=== PATIENT | female | born 1985 | race Caucasian/White ===

== ENCOUNTER 2022-11-24 14:50 | Emergency (ER) | payer MEDICAID, SELFPAY ==
--- NOTE | ~2022-11-24 | CT_ITS ---
EXAMINATION: CT HEAD WITHOUT CONTRAST CLINICAL INFORMATION: Headache. COMPARISON: None. TECHNIQUE: Contiguous axial imaging was performed from the skull base to vertex without intravenous administration of contrast. This CT examination was performed using dose optimization techniques as appropriate, variously including the following: *Automated exposure control *Adjustment of mA and/or kV according to patient size (this includes techniques or standardized protocols for targeted exams where dose is matched to indication/reason for exam; i.e. extremities or head) *Use of iterative reconstruction technique DLP: 608 mGy-cm FINDINGS: There is no evidence of acute intracranial hemorrhage or edematous territorial infarction. There is no abnormal attenuation within the brain parenchyma. Aguilar-white matter differentiation is preserved. The ventricles are normal in size and configuration. No evidence for obstructive hydrocephalus. No abnormal mass effect or midline shift. No extra-axial fluid collections. No acute soft tissue or osseous abnormalities. Mild mucosal thickening of the paranasal sinuses. No air-fluid levels. The mastoids and middle ear cavities are clear. CT/CT head/brain wo IV con IMPRESSION: No evidence of acute intracranial hemorrhage or edematous territorial infarction.
[2022-11-24 16:17] VITALS: BP 149/71; PULSE 78; RESP 18; TEMP 36.8; O2SAT 98; BMI 35.2
--- NOTE | 2022-11-24 16:27 | ED_ITS ---
HPI - General Adult General Source: patient <ABDELRAHMAN Gamboa - Last Filed: 11/24/22 19:14> Mode of arrival: ambulatory <ABDELRAHMAN Gamboa - Last Filed: 11/24/22 19:14> Limitations: no limitations <ABDELRAHMAN Gamboa Last Filed: 11/24/22 19:14> History of Present Illness HPI narrative: 37 years old female is here today for complaints of right eye pain. Patient describes the pain as sharp and intermittent. Patient started pain yesterday. She reports to have been sick with cold about 5 days ago. Patient reports that the pain feels like sinus pressure like pain, is not there all the time. Patient denies any neuro symptoms. Denies any tingling any temporal dis comfort. Patient denies pressure behind her eyes. Reports her significant other recently got over pneumonia and her daughter recently was tested positive for COVID approximately 1 week ago. Patient denies any fevers, chills, dizziness, neck pain/stiffness, changes in vision, sore throat, ear pain, recent falls or trauma, CO2 exposure, recent tick bites, others with similar symptoms, recent spinal procedure, chest pain or shortness of breath, cough, sputum production, rashes, paresthesias, palpitations, nausea/vomiting/diarrhea constipation, black or bloody stools, rashes, lower extremity edema or calf tenderness, recent travel or any other symptoms complaints or concerns at this time. <ABDELRAHMAN Gamboa - Last Filed: 11/24/22 19:14> MD complaint: Headache, right eye pain, nasal congestion/rhinorrhea/sinus pressure pain <ABDELRAHMAN Gamboa - Last Filed: 11/24/22 19:14> Onset (ago): day(s) (Started today) <ABDELRAHMAN Gamboa - Last Filed: 11/24/22 19:14> Related Data Home medications: Previous Rx's Medication Instructions Recorded amoxicillin 875 mg-potassium 1 tab PO BID 7 days #14 tabs 11/24/22 clavulanate 125 mg tablet <RAMESH Hancock - Last Filed: 11/28/22 20:45> Allergies/adverse reactions: Allergies Allergy/AdvReac Type Severity Reaction Status Date / Time No Known Allergies Allergy Verified 11/24/22 16:20 <RAMESH Hancock - Last Filed: 11/28/22 20:45> Review of Systems Review of Systems: Constitutional : No changes in activity, No lethargy, No recent prior head injury, No agitation, No increased fussiness, no fevers, no chills ENT/Mouth : No Ear Pain, No Sore Throat, + Nasal discharge/drainage, + sinus pressure pain Eyes: No Eye Pain, No Swelling, No Redness, No Foreign Body, No Vision Changes Cardiovascular : No Chest Pain, No SOB Respiratory : No Cough Gastrointestinal : No Nausea, No Vomiting, No abdominal Pain Genitourinary : No Dysuria, No Urinary Frequency, No Urinary Incontinence, No Urgency, No Flank Pain Musculoskeletal : No joint pain, No neck stiffness, No back pain/injury Skin : No lacerations Neuro : No unsteady gait, No Paresthesias, No Loss of Consciousness, No altered mental status, No dizziness, + Headache Denies past medical history of HIV, recent trauma, coagulopathy, recent spinal/ epidural procedure, new medication, URI symptoms, close contacts with similar symptoms, tick bite, or known CO2 exposure. <ABDELRAHMAN Gamboa - Last Filed: 11/24/22 19:14> Yes all other systems are reviewed and are negative <ABDELRAHMAN Gamboa - Last Filed: 11/24/22 19:14> [facility] Past Medical History Attestation statement: The following information was validated with the patient. <ABDELRAHMAN Gamboa - Last Filed: 11/24/22 19:14> Source: old records reviewed <ABDELRAHMAN Gamboa - Last Filed: 11/24/22 19:14> Social History Social History: Social History Advance Directives: No Advance Directives Information Provided: No <RAMESH Hancock - Last Filed: 11/28/22 20:45> Physical Exam ED Vital Signs: Vital Signs - 24 hr 11/24/22 16:17 Temperature 98.2 F Pulse Rate 78 Respiratory Rate 18 Blood Pressure 149/71 H Pulse Oximetry 98 Oxygen Delivery Method Room Air BMI result Body Mass Index 35.2 <RAMESH Hancock - Last Filed: 11/28/22 20:45> Vital Signs - 24 hr 11/24/22 16:17 Temperature 98.2 F Pulse Rate 78 Respiratory Rate 18 Blood Pressure 149/71 H Pulse Oximetry 98 Oxygen Delivery Method Room Air BMI result Body Mass Index 35.2 vital signs have been reviewed as normal and appeared to be correct. Blood pressure 149/71 Heart rate normal. Respiration rate normal. Temperature normal. Oxygen saturation normal. <ABDELRAHMAN Gamboa - Last Filed: 11/24/22 19:1 4> Appearance: Alert. Oriented X3. No acute distress. Head: Normal external exam. Normocephalic. Atraumatic. Eyes: PERRLA. EOMI. Conjunctiva and sclera normal. Eyelids normal. ENT: EAC normal. TM's Normal. Pharynx normal. Uvula midline. Moist mucous membranes. No lesions/ulcerations or masses noted on the tongue. Normal voice. No trismus noted. No drooling noted. No muffled voice noted. Neck: Normal inspection. Neck supple. FROM. No adenopathy. Thyroid Normal. No tracheal deviation noted. No crepitus is noted. No meningeal signs. No neck m ass noted. No signs of trauma noted. CVS: Normal heart rate and rhythm. Heart sound normal. Pulses normal throughout. No murmurs/rales/gallops. Respiratory: No respiratory distress. Painless inspiration. Breath sounds normal. No wheezes/rales/rhonchi noted. Chest nontender. No crepitus is noted. No signs of trauma noted. No accessory muscle usage noted or decreased air movement noted. No signs of trauma. Abdomen: Soft and nontender. Bowel sounds normal in all 4 quadrants. No distention noted. No organomegaly noted. No visible injury noted. Back: Full range of motion noted. Nontender. Skin: Skin warm and dry. Normal skin color. Normal skin turgor. No rashes/lesions/lacerations noted. Extremities: Extremities exhibit normal range of motion and nontender. Neuro: Oriented X 3. No motor deficit. No sensory deficit. Reflexes normal. Normal steady gait. No focal neuro deficits noted. CN's II-XII intact bilaterally? Vascular: + radial pulses Normal cap refill. No cyanosis noted to upper extremity nails <ABDELRAHMAN Gamboa - Last Filed: 11/24/22 19:14> Course Course Course Narrative: REM 37 years old female is here today for complaints of right eye pain. Patient describes the pain as sharp and intermittent. Patient started pain yesterday. She reports to have been sick with cold about 5 days ago. Patient reports that the pain feels like sinus pressure like pain, is not there all the time. Patient denies any neuro symptoms. Denies any tingling any temporal discomfort. Patient denies pressure behind her eyes. Denies any earaches. Patent she denies any nausea or vomiting. Patient denies migraine like headache. Will get CT scan of the head and medicate patient with Tylenol. Patient is hemodynamically stable <ABI Hancock-BC - Last Filed: 11/28/22 20:45> REM 37 years old female is here today for complaints of right eye pain. Patient describes the pain as sharp and intermittent. Patient started pain yesterday. She reports to have been sick with cold about 5 days ago. Patient reports that the pain feels like sinus pressure like pain, is not there all the time. Patient denies any neuro symptoms. Denies any tingling any temporal discomfort. Patient denies pressure behind her eyes. Denies any earaches. Patent she denies any nausea or vomiting. Patient denies migraine like headache. Will get CT scan of the head and medicate patient with Tylenol. Patient is hemodynamically stable <ABDELRAHMAN Gamboa - Last Filed: 11/24/22 19:14> Reevaluation(s) Reevaluation #1: 37 years old female is here today for complaints of right eye pain. Patient describes the pain as sharp and intermittent. Patient started pain yesterday. She reports to have been sick with cold about 5 days ago. Patient reports that the pain feels like sinus pressure like pain, is not there all the time. Patient denies any neuro symptoms. Denies any tingling any temporal discomfort. Patient denies pressure behind her eyes. Reports her significant other recently got over pneumonia and her daughter recently was tested positive for COVID approximately 1 week ago. Patient afebrile, resting comfortably in no distress. Non-toxic appearing. Patient denies any recent trauma/injury to head. Neurological exam shows no deficits. BP WNL. Denies any changes in vision. Patient ambulates without difficulty. Given the history, and physical - most likely diagnosis: Migraine CRUZ. Although due to patient reporting that this is longer than her usual headaches will obtain CT scan of brain to evaluate for any acute processes. Will treat pain, and nausea. Will d/c with migraine medicaiton and advised to follow - up with PCP. Patient demonstrated good understanding of signs and symptoms to return to ED for further testing should sx worsen. SAH: unlikely given gradual onset and similar to previous episodes Intracranial bleed: unlikely given neg trauma, neg anticoagulation Meningitis: unlikely given pt afebrile, neg stiff neck, no immune compromise. Exam without signs of meningismus Temporal arteritis: Unlikely given Neg jaw claudication, no temporal tenderness or nodularity on exam. Cerebral venous thrombosis: unlikely given no h/o hypercoaguable state, no chronic head/neck infection. CT scan ordered and negative for any acute process. Pending COVID/RSV/flu swab sign out to [facility] Giv[facility]. If negative patient can be discharged with antibiotics for possible sinusitis infections. Patient understands agrees with this plan. <ABDELRAHMAN Gamboa - Last Filed: 11/24/22 19:14> Time: 19:13 <ABDELRAHMAN Gamboa - Last Filed: 11/24/22 19:14> Medications Administered Discontinued Medications Generic Name Dose Route Start Last Admin Trade Name Freq PRN Reason Stop Dose Admin Acetaminophen 650 mg 11/24/22 16:27 11/24/22 17:43 Acetaminophen 325 Mg Tablet PO 11/24/22 16:28 650 mg ONCE STA Administration <ABI Hancock-BC - Last Filed: 11/28/22 20:45> Medications Administered Discontinued Medications Generic Name Dose Route Start Last Admin Trade Name Freq PRN Reason Stop Dose Admin Acetaminophen 650 mg 11/24/22 16:27 11/24/22 17:43 Acetaminophen 325 Mg Tablet PO 11/24/22 16:28 650 mg ONCE STA Administration <ABDELRAHMAN Gamboa - Last Filed: 11/24/22 19:14> Medical Decision Making Lab Data MDM Lab Attestation statement: I reviewed the patient's lab results. <ABDELRAHMAN Gamboa - Last Filed: 11/24/22 19:14> Labs: Lab Results 11/24/22 Range/Units 18:12 Influenza Type A (PCR) NEGATIVE (Negative) Influenza Type B (PCR) NEGATIVE (Negative) RSV RNA Qual (PCR) NEGATIVE (Negative) SARS-CoV-2 RNA (RT-PCR) NEGATIVE (Negative) <RAMESH Hancock - Last Filed: 11/28/22 20:45> Lab Results 11/24/22 Range/Units 18:12 Influenza Type A (PCR) NEGATIVE (Negative) Influenza Type B (PCR) NEGATIVE (Negative) RSV RNA Qual (PCR) NEGATIVE (Negative) SARS-CoV-2 RNA (RT-PCR) NEGATIVE (Negative) <ABDELRAHMAN Gamboa Last Filed: 11/24/22 19:14> Independent Interpretation I performed an independent interpretation of an: CT Scan <ABDELRAHMAN Gamboa Last Filed: 11/24/22 19:14> Interpretation: CT scan of brain without contrast FINDINGS: There is no evidence of acute intracranial hemorrhage or edematous territorial infarction. There is no abnormal attenuation within the brain parenchyma. Aguilar-white matter differentiation is preserved. The ventricles are normal in size and configuration. No evidence for obstructive hydrocephalus. No abnormal mass effect or midline shift. No extra-axial fluid collections. No acute soft tissue or osseous abnormalities. Mild mucosal thickening of the paranasal sinuses. No air-fluid levels. The mastoids and middle ear cavities are clear. ? CT/CT head/brain wo IV con IMPRESSION: No evidence of acute intracranial hemorrhage or edematous territorial infarction. <ABDELRAHMAN Gamboa - Last Filed: 11/24/22 19:14> Radiology Impression Discussion of test interpretation with radiology: I have reviewed the radiologist's reading. <ABDELRAHMAN Gamboa Last Filed: 11/24/22 19:14> External Record Review External record reviewed: Inpatient record, Office record, Outpatient record, Prior outpatient labs, Prior outpatient radiology, Primary care record and Outside ED record <ABDELRAHMAN Gamboa Last Filed: 11/24/22 19:14> Prescription Management I considered prescription management with: Pain Medication <ABDELRAHMAN Gamboa Last Filed: 11/24/22 19:14> Discharge Plan Discharge Clinical Impression: Headache, Sinusitis <RAMESH Hancock - Last Filed: 11/28/22 20:45> Patient Disposition: Home, Self-Care <RAMESH Hancock - Last Filed: 11/28/22 20:45> Instructions: Sinusitis (ED), General Headache (ED) <RAMESH Hancock - Last Filed: 11/28/22 20:45> Prescriptions: New amoxicillin-pot clavulanate 875-125 mg tablet 1 tab PO BID 7 Days Qty: 14 0RF <RAMESH Hancock - Last Filed: 11/28/22 20:45> Referrals: Ronny Vasques MD [Primary Care Provider] - 3 days <RAMESH Hancock - Last Filed: 11/28/22 20:45> Stand Alone Forms: Work/School Release <RAMESH Hancock - Last Filed: 11/28/22 20:45> Interventions: ED Discharge Assessment Last Done: 11/24/22 19:49 <RAMESH Hancock - Last Filed: 11/28/22 20:45> Discharge Date/Time: 11/24/22 19:52 <RAMESH Hancock - Last Filed: 11/28/22 20:45>
[2022-11-24] MEDS: Acetaminophen 325 MG TABLET 650 MG PO (17:43)
[2022-11-24 18:55] LABS: Influenza A PCR NEGATIVE (Negative); Influenza B PCR NEGATIVE (Negative); Resp Syncy Virus RNA Qual PCR NEGATIVE (Negative); SARS COV2 PCR INHOUSE NEGATIVE (Negative)
== END 2022-11-24 19:52 | disposition home or self-care (01) ==
PROVIDERS: Physician Assistant Medical; Emergency Provider Emergency Medicine; PCP Internal Medicine
DX: J32.9 Chronic sinusitis, unspecified (principal); R51.9 Headache, unspecified; Z20.822 Contact with and (suspected) exposure to COVID-19; Z79.899 Other long term (current) drug therapy
CPT/HCPCS: 0241U; 70450; 99283; 99284

== ENCOUNTER 2023-05-21 21:29 | Emergency (ER) | payer MEDICAID, SELFPAY ==
[2023-05-21 21:31] VITALS: BP 152/92; PULSE 80; RESP 18; TEMP 36.1; O2SAT 98; BMI 35.2
[2023-05-22] VITALS: BP 121/70; PULSE 67; RESP 16; TEMP 36.3; O2SAT 98
--- NOTE | 2023-05-22 00:26 | MHC.EDTECH ---
THIS PCT JUST ASSUMED CARE OF PATIENT ,VITALS SIGN TAKEN ,PT WAITING FOR DISCHARGE PAPER WORK .
--- NOTE | 2023-05-22 00:45 | ED.FEMALEGU ---
HPI - Female Genitourinary General Chief complaint: Urogenital-Female Stated complaint: uti Time Seen by Provider: 05/22/23 00:11 Source: patient and family Mode of arrival: ambulatory Limitations: no limitations History of Present Illness HPI Narrative: 37-year-old female came in for evaluation of possible UTI, patient been having urgency urination with frequency and burning sensation when urinate, no fever, no chills, no back pain, patient had previous UTI symptoms in the past, decline abdominal pain, no nausea, no vomiting. Sexually active with 1 partner patient declined risk for STDs. Past surgical history is significant for C-sections. Related Data Previous Rx's Medication Instructions Recorded amoxicillin 875 mg-potassium 1 tab PO BID 7 days #14 tabs 11/24/22 clavulanate 125 mg tablet levofloxacin 750 mg tablet 750 mg PO DAILY #10 tabs 05/22/23 Allergies Allergy/AdvReac Type Severity Reaction Status Date / Time No Known Allergies Allergy Verified 11/24/22 16:20 Review of Systems Review of Systems: All other systems are reviewed and are negative Constitutional: Reports as per HPI and Reports no additional constitutional complaints Eyes: Reports as per HPI and Reports no additional eye complaints Reports system reviewed and no additional complaints, except as documented Cardiovascular: Reports as per HPI and Reports no additional cardiovascular complaints Respiratory: Reports as per HPI and Reports no additional respiratory complaints Gastrointestinal: Reports as per HPI and Reports no additional gastrointestinal complaints Genitourinary: Reports no additional female genitourinary complaints Musculoskeletal: Reports no additional musculoskeletal complaints Skin/Breast: Reports system reviewed and no additional complaints, except as docu Psychiatric: Reports no additional psychiatric complaints Endocrine: Reports no additional endocrine complaints Hematologic/Lymphatic: Reports no additional hematologic/lymphatic complaints Allergic/Immunologic: Reports no additional allergic/immunologic complaints Reports system reviewed and no additional complaints, except as documented and Reports Abnormal speech present [facility] Social History Social History Alcohol intake: current Alcohol intake frequency: holidays/special occasions only Smoked in Last 30 Days: Yes Use of substances other than those prescribed or required for medical reasons: No Advance Directives: No Advance Directives Information Provided: No Patient : No Physical Exam Vital Signs: Vital Signs: Last Vital Signs Temp 97.4 F 05/22/23 00:00 Pulse 67 05/22/23 00:00 Resp 16 07/03/23 00:00 BP 121/70 05/22/23 00:00 Pulse Ox 98 05/22/23 00:00 O2 Del Method Room Air 05/22/23 00:00 BMI result Body Mass Index 35.2 Vital signs have been reviewed as appeared to be correct. Blood pressure normal. Heart rate normal. Respiration rate normal. Temperature normal. Oxygen saturation normal. Appearance: Alert. Oriented X3. No acute distress. Head: Normal external exam. Normocephalic. Atraumatic. No Soni signs noted. No raccoon eyes noted Eyes: PERRLA. EOMI. Conjunctiva and sclera normal. Eyelids normal. ENT: TM's Normal. Pharynx normal. Uvula midline. Moist mucous membranes. No trismus noted. No drooling noted. No muffled voice noted. Neck: Normal inspection. Neck supple. FROM. No adenopathy. Thyroid Normal. No meningeal signs. No neck mass noted. CVS: Normal heart rate and rhythm. Heart sound normal. No murmurs noted. Pulses normal throughout. Respiratory: No respiratory distress. Painless inspiration. Breath sounds normal. No wheezes/rales/rhonchi noted. Chest nontender. No accessory muscle usage noted or decreased air movement noted. Abdomen: Soft and nontender. Bowel sounds normal in all 4 quadrants. No distention noted. No organomegaly noted. No visible injury noted. Back: No CVA tenderness. Full range of motion noted. Skin: Skin warm and dry. Normal skin color. Normal skin turgor. No rashes/lesions/lacerations noted. Extremities: No lower extremity edema. Extremities exhibit normal range of motion. Extremities nontender. Neuro: Oriented X 3. Cranial nerve exam: II-XII are grossly intact No motor deficit. No sensory deficit. Reflexes normal. Course Course Course Narrative: 37-year-old female came in with UTI symptoms, no abdominal pain, physical exam and history are consistent with simple UTI will start the patient on Levaquin and encouraged to drink plenty of fluids. Medical Decision Making Differential Diagnosis Differential Diagnoses: The differential diagnosis associated with the presentation includes (UTI, pyelonephritis, sepsis, .) Lab Data MDM Lab Attestation statement: I reviewed the patient's lab results. Labs: Lab Results 05/21/23 05/22/23 Range/Units 23:47 23:47 Urine Color Dark Yellow Urine Appearance Turbid Urine pH 5.5 (5.0-9.0) Ur Specific [place] 1.020 (1.005-1.025) Urine Protein 30 (1+) H (Neg-Trace) mg/dL Urine Glucose (UA) Negative (Negative) mg/dL Urine Ketones Negative (Negative) mg/dL Urine Blood Small (1+) H (Negative) Urine Nitrite Positive H (Negative) Ur Leukocyte Esterase Large (3+) H (Negative) Urine RBC 11-20 H (0-2) /HPF Urine WBC >50 H (0-5) /HPF Ur Squamous Epith Cells 6-10 (0-2) /HPF Urine Bacteria Trace (None Seen) Hyaline Casts 0-2 (0-2) /LPF Urine Test NEGATIVE (NEGATIVE) Discharge Plan Discharge Clinical Impression: Urinary tract infection Patient Disposition: Home, Self-Care Instructions: Urinary Tract Infection in Women (ED) Additional Instructions: Drink plenty of fluids Prescriptions: New levofloxacin 750 mg tablet 750 mg PO DAILY Qty: 10 0RF No Action amoxicillin-pot clavulanate 875-125 mg tablet 1 tab PO BID 7 Days Qty: 14 0RF Referrals: Ronny Vasques MD [Primary Care Provider] -
== END 2023-05-22 01:01 | disposition home or self-care (01) ==
PROVIDERS: Emergency Provider Emergency Medicine; PCP Internal Medicine
DX: N39.0 Urinary tract infection, site not specified (principal); R39.15 Urgency of urination; R35.0 Frequency of micturition; R30.9 Painful micturition, unspecified
CPT/HCPCS: 81001; 81025; 87086; 99283; 99284

== ENCOUNTER 2023-07-14 10:13 | Outpatient (REF) | payer MEDICAID, SELFPAY ==
[2023-07-14 13:47] LABS: MANUAL DIFF FLAG NO
[2023-07-14 14:12] LABS: Basophils Absolute Auto 0.1 X10*3/uL (0.0-0.2); Basophils Percent Auto 0.7 % (0-2); Eosinophils Absolute Auto 0.1 X10*3/uL (0.0-0.4); Eosinophils Percent Auto 0.7 % (0-4); Hemoglobin 13.6 g/dl (12.0-16.0); Imm Gran Abs Auto 0.01 X10*3/uL (0.00-0.03); Imm Gran Pct Auto 0.1 % (0.0-0.4); Lymphocytes Absolute Auto 2.3 X10*3/uL (1.2-4.9); Lymphocytes Percent Auto 34.3 % (20-40); Mean Corpuscular HGB Conc 33.2 g/dl (31.0-35.0); Mean Corpuscular Hemoglobin 28.9 pg (27.0-33.0); Mean Corpuscular Volume 87.2 fL (80.0-98.0); Mean Platelet Volume 10.1 fL (9.4-12.3); Monocytes Absolute Auto 0.4 X10*3/uL (0.1-1.2); Monocytes Percent Auto 6.5 % (2-11); Neutrophils Absolute Auto 3.9 x10*3/uL (2.0-8.3); Neutrophils Percent Auto 57.7 % (45-73); Platelet Count 313 X10*3/uL (160-400); Red Cell Distribution Width 12.5 % (11.0-16.0); White Blood Count 6.8 X10*3/uL (4.8-10.8)
[2023-07-14 16:34] LABS: Alanine Aminotransferase 13 U/L (0-31); Alkaline Phosphatase 55 U/L (39-117); Anion Gap 13 (12-20); Aspartate Amino Transferase 17 U/L (5-31); Bilirubin Total 0.4 mg/dL (0.0-1.0); Blood Urea Nitrogen 9 mg/dL (9-16); Calcium 9.2 mg/dL (8.4-10.2); Carbon Dioxide 27 mmol/L (22-29); Chloride 106 mmol/L (96-108); Cholesterol 197 mg/dL (<200); Estimated Glomerular Filt Rate > 60; Glucose Random 81 mg/dL (60-115); HDL Cholesterol 48 mg/dL (>40); Iron 54 mcg/dL (30-160); LDL Cholesterol Calculated 130 mg/dL (<100); Percent Iron Saturation 17 % (15-50); Potassium 3.9 mmol/L (3.3-5.1); Sodium 142 mmol/L (135-145); Total Iron Binding Capacity 323 mcg/dL (228-428); Total Protein 6.9 g/dL (6.5-8.0); Triglycerides 95 mg/dL (<150); Unsaturated Iron Binding 269 ug/dL
[2023-07-14 17:02] LABS: Ferritin 23 ng/mL (10-122); Vitamin D 25-OH Total 28.2 ng/mL (>30)
== END 2023-07-14 10:14 | disposition home or self-care (01) ==
LOC: HO.MANLDS 10:13
PROVIDERS: Visit Provider Internal Medicine
DX: Z00.00 Encounter for general adult medical examination without abnormal findings (principal); N92.0 Excessive and frequent menstruation with regular cycle
CPT/HCPCS: 36415; 80053; 80061; 82306; 82728; 83540; 85025

== ENCOUNTER 2025-02-25 10:36 | Outpatient (REF) | payer MEDICAID, SELFPAY ==
--- OUTSIDE RECORDS SUMMARY | 2025-02-25 12:42 | XMS_ITS | Data Portability ---
Author Organization [place] - [facility], Home Service Address [address] [place] [address] Assessment Encounter Date Assessment Date Assessment LastModified by Organization Details LastModified Time 08/26/2024 08/26/2024 Patient agreed and verbally consents to this audio and video Telehealth appt via a secure platform [email or web address] Not available 08/26/2024 16:18:17 01/14/2025 01/14/2025 Patient agreed and verbally consents to this audio and video Telehealth appt via a secure platform [email or web address] Not available 01/14/2025 16:00:15 Plan of Treatment Reminders Order Date Submit Date Provider Last Modified By Organization Details Last Modified Time Details Appointments FOLLOW UP 15 2024 10:15A M ABDELRAHMAN RIVERO Not available Not available Not available Lab CMP, serum or plasma 2024 025 [facility], [address] [place] [address], [id number], 02/25/2025 10:36:15 CBC w/ auto diff 2024 025 [facility], [address] [place] [address], [id number], 02/25/2025 10:36:15 lipid panel, serum 2024 025 [facility], [address] [place] [address], [id number], 02/25/2025 10:36:15 rapid strep group A, throat 2023 024 [facility], [address] [place] [address] D, [place], [address], 11/11/2024 14:39:16 culture, throat 2023 [facility], [address] [facility], [place], [address], 11/11/2024 14:44:31 Referral None recorded. Procedures None recorded. Surgeries None recorded. Imaging XR, chest, 2 view 2023 [facility], [address] [place], [address], 09/09/2024 08:16:14 Medication Orders Zepbound 2.5 mg/0.5 mL subcutane ous pen injector 2024 025 [facility] #[id number], [address], [place], [id number], 02/25/2025 10:27:47 dextroamp hetamine- amphetami ne 10 mg tablet 2024 025 [facility] #14329, [address], [place], [id number], 02/25/2025 10:27:51 Zithromax Z-Xu 250 mg tablet 2024 025 [facility] #25110, [address], [place], [id number], 02/25/2025 10:13:59 Medrol (Xu) 4 mg tablets in a dose pack 2024 025 [facility] #10622, [address], [place], [id number], 02/25/2025 10:13:12 benzonata te 200 mg capsule 2024 025 [facility] #06752, [address], [place], [id number], 02/25/2025 10:13:05 atomoxeti ne 40 mg capsule 2024 025 [facility] #96248, [address], [place], [id number], 12/03/2024 16:32:22 amoxicill in 875 mg tablet 2023 025 [facility] #84537, [address], [place], [id number], 12/03/2024 16:16:56 prednison e 10 mg tablet 2023 025 [facility] #74822, [address], [place], [id number], 12/03/2024 16:17:30 Wegovy 0.25 mg/0.5 mL subcutane ous pen injector 2023 025 [facility], [address], [place], [id number], 12/03/2024 16:17:39 Patient TargetsNo targets recorded. Patient InstructionsNo instructions recorded. Reason for Referral None Reported. Results Created Date Observation Date Name Description Value Unit Range Abnormal Flag Note LastModifiedBy Organization Detail LastModifiedTime 11/11/20 24 11/11/2024 rapid strep group A, throa t Strep negati ve Not Available [facility] [address] [facility] [address], [place], [address], 11/11/2024 14:37:42 Result Notes None recorded. Problems Name Problem SNOMED Code Status Onset Date Resolution Date Notes Provider Name and Address Organization Details Recorded Time Cellulit is 243801175 Active 2018 MARY ANN [facility] 9 08:28:53 Bee sting 059235118 Active 2018 ? allergy Sasha Bucko null, [facility] 9 08:29:18 Chronic low back pain 381225377 Active 2018 L5,S1 [facility] 08:30:52 Sciatica 09889727 Active [facility] 08:29:46 Tobacco dependen ce syndrome 89114612 Active 2018 [facility] 08:31:01 Infestat ion by Sarcopte s scabiei meliton hominis 997726514 Active 2018 [facility] 08:31:30 Obesity 892336824 Active 2018 TYRONE Meyers [address] [place], [address], [facility] 9 11:59:04 Pneumoni a 977560632 Active 2022 ABDELRAHMAN RIVERO [address] [place] [address], [address], [facility] 3 12:11:04 Acute otitis media 1643833 Active 2022 ABDELRAHMAN RIVERO [address] [place] [address], [address], [facility] 3 12:11:38 Acute severe exacerba tion of asthma 347458741 Active 2022 ABDELRAHMAN RIVERO [address] [place], [address], [facility] 3 12:11:57 Eczema 94034834 Active 2022 ABDELRAHMAN RIVERO [address] [place] [address], [address], [facility] 3 12:19:22 Menorrha nixon 251281562 Active 2022 Ronny Vasques DO [address] [place], [address], [facility] 3 09:51:42 COVID-19 444975475 Active 2023 Ronny Vasques DO [address] [place], [address], [facility] 4 09:30:39 Streptoc occal sore throat 04411968 Active 2023 ABDELRAHMAN RIVERO [address] [place] [address], [address], [facility] 4 13:26:39 Depressi ve disorder 73894398 Active 2023 ABDELRAHMAN RIVERO [address] [place] [address], [address], [facility] 4 16:28:45 Insomnia 217536176 Active 2023 ABDELRAHMAN RIVERO [address] [place] [address], [address], [facility] 4 16:38:46 Nausea and vomiting 64615411 Active 2023 ABDELRAHMAN RIVERO [address] [place] [address], [address], [facility] 4 16:42:37 Herpes zoster 8293973 Active 2023 ABDELRAHMAN RIVERO [address] [place] [address], [address], [facility] 4 09:18:03 Postherp etic neuralgi a 9676776 Active 2023 ABDELRAHMAN RIVERO [address] [place] [address], [address], [facility] 4 15:46:11 Acquired hammer toe of right foot 95194229914 18801 Active 2023 ABDELRAHMAN RIVERO [address] [place] [address], [address], [facility] 4 09:33:26 Acute bronchit is 81727309 Active 2023 ABDELRAHMAN RIVERO [address] [place], [address], [facility] 4 15:24:34 Acute urinary tract infectio n 267154301 Active 2023 ABDELRAHMAN RIVERO [address] [place], [address], [facility] 4 15:43:58 Influenz a caused by Influenz a A virus 805934266 Active 2023 ABDELRAHMAN RIVERO [address] [place] [address], [address], [facility] 4 12:14:13 Sore throat 442827034 Active 2023 ABDELRAHMAN RIVERO [address] [place] [address], [address], [facility] 4 14:37:06 Dyslexia 66984801 Active 2024 ABDELRAHMAN RIVERO [address] [place] [address], [address], [facility] 5 16:19:16 Poor concentr ation 11069651 Active 2024 ABDELRAHMAN RIVERO [address] [place] [address], [address], [facility] 5 16:25:55 Cough 50060120 Active 2024 ABDELRAHMAN RIVERO [address] [place] [address], [address], [facility] 5 16:01:43 Attentio n deficit hyperact ivity disorder 520967441 Active 2024 ABDELRAHMAN RIVERO [address] [place] [address], [address], [facility] 5 10:21:14 Problem Notes None recorded. Medical Equipment None Reported. Allergies No known drug allergies Medications Name Sig Start Date Stop Date Status Note LastModified by Organization Details LastModified Time cyclobenzap rine 10 mg tablet Take 1 tablet twice a day by oral route as needed for 30 days. 01/25 completed Not Available Not Available Not Available prednisone 10 mg tablet 50 mg x 3 days40 mg x 3 days30 mg x 3 days20 mg x 3 days10 mg x 3 days active Not Available Not Available No t Available trazodone 50 mg tablet 01/24 completed Not Available Not Available Not Available azithromyci n 250 mg tablet TAKE 2 TABLETS (500 MG) BY ORAL ROUTE ONCE DAILY FOR 1 DAY THEN 1 TABLET (250 MG) BY ORAL ROUTE ONCE DAILY FOR 4 DAYS 08/23 completed Not Available Not Available Not Available ibuprofen 800 mg tablet Take 1 tablet 3 times a day by oral route as needed for 30 days. 01/25 completed Not Available Not Available Not Available Lidocaine Viscous 2 % mucosal solution TAKE 15 ML BY MOUTH EVERY 3 HOURS NEEDED FOR 7 DAYS 01/25 completed Not Available Not Available Not Available tizanidine 4 mg tablet TAKE 1 TABLET BY MOUTH EVERY 6 HOURS FOR 7 DAYS NEEDED 02/19 completed Not Available Not Available Not Available benzonatate 200 mg capsule Take 1 capsule 3 times a day by oral route as directed for 14 days. 02/25 completed Not Available Not Available Not Available valacyclovi r 1 gram tablet TAKE 1 TABLET BY MOUTH EVERY 8 HOURS FOR 7 DAYS 02/19 completed Not Available Not Available Not Available hydrocodone 5 mg-acetamin ophen 325 mg tablet Take 1 tablet every 4-6 hours by oral route as needed for 7 days. 01/24 completed Not Available Not Available Not Available Medrol (Xu) 4 mg tablets in a dose pack Take 1 dose pk by oral route. 02/25 completed Not Available Not Available Not Available prednisone 20 mg tablet TAKE 3 TABLETS BY MOUTH EVERY DAY FOR 5 DAYS 01/25 completed Not Available Not Available Not Available dextroamphe tamine-amph etamine 10 mg tablet Take 1 tablet every day by oral route as needed for 14 days. 2024 active Not Available Not Available Not Avai lable clobetasol 0.05 % topical cream APPLY A THIN LAYER TO THE AFFECTED AREA(S) BY TOPICAL ROUTE 2 TIMES PER DAY active Not Available Not Available No t Available penicillin V potassium 500 mg tablet 01/25 completed Not Available Not Available Not Available ciprofloxac in 500 mg tablet TAKE 1 TABLET BY MOUTH EVERY 12 HOURS FOR 7 DAYS 01/25 completed Not Available Not Available Not Available olanzapine 2.5 mg tablet TAKE 2 TABLETS BY MOUTH EVERY DAY NEEDED FOR 30 DAYS FOR INSOMNIA active Not Available Not Available No t Available triamcinolo ne acetonide 0.1 % topical cream APPLY A THIN LAYER TO THE AFFECTED AREA(S) BY TOPICAL ROUTE 2 TIMES PER DAY 12/03 completed Not Available Not Available Not Available ondansetron 8 mg disintegrat ing tablet DISSOLVE 1 TABLET ON THE TONGUE TWICE DAILY FOR 14 DAYS NEEDED FOR NAUSEA 04/02 completed Not Available Not Available Not Available acetaminoph en ER 650 mg tablet,exte nded release 01/25 completed Not Available Not Available Not Available trazodone 100 mg tablet TAKE 1 TABLET BY MOUTH AT BEDTIME 01/25 completed Not Available Not Available Not Available benzonatate 100 mg capsule 12/03 completed Not Available Not Available Not Available oseltamivir 75 mg capsule TAKE 1 CAPSULE BY MOUTH TWICE A DAY FOR 5 DAYS 12/03 completed Not Available Not Available Not Available buspirone 10 mg tablet TAKE 1 TABLET BY MOUTH TWICE DAILY FOR ANXIETY 01/25 completed PRN Not Available Not Available Not Available ibuprofen 400 mg tablet 01/24 completed Not Available Not Available Not Available nicotine 21 mg/24 hr daily transdermal patch 01/24 completed Not Available Not Available Not Available gabapentin 300 mg capsule Take 1 capsule 3 times a day by oral route as needed for 30 days. 08/23 completed Not Available Not Available Not Available hydroxyzine HCl 25 mg tablet TAKE 1 TABLET BY MOUTH THREE TIMES DAILY NEEDED 01/25 completed Not Available Not Available Not Available norethindro ne acetate 5 mg tablet TAKE 1 TABLET BY MOUTH 3 TIMES A DAY FOR 10 DAYS 01/24 completed Not Available Not Available Not Available levofloxaci n 750 mg tablet TAKE 1 TABLET BY MOUTH EVERY DAY 01/25 completed Not Available Not Available Not Available amoxicillin 875 mg-potassiu m clavulanate 125 mg tablet TAKE 1 TABLET BY MOUTH EVERY 12 HOURS FOR 10 DAYS 12/03 completed Not Available Not Available Not Available amoxicillin 500 mg-potassiu m clavulanate 125 mg tablet TAKE 1 TABLET BY MOUTH 3 TIMES A DAY FOR 10 DAYS 01/25 completed Not Available Not Available Not Available Ventolin HFA 90 mcg/actuati on aerosol inhaler INHALE 2 PUFFS INTO THE LUNGS EVERY 4 HOURS NEEDED FOR WHEEZING 01/25 completed Not Available Not Available Not Available oxycodone 5 mg tablet TAKE 1 TABLET BY MOUTH EVERY 4 TO 6 HOURS FOR 7 DAYS NEEDED FOR PAIN 02/08 completed Not Available Not Available Not Available hydroxyzine pamoate 25 mg capsule TAKE 1 CAPSULE BY MOUTH FOUR TIMES DAILY NEEDED FOR ANXIETY. MAY USE FOR SLEEP 01/25 completed PRN Not Available Not Available Not Available neomycin-po lymyxin-hyd rocort 3.5 mg-10,000 unit/mL-1 % ear drops,susp INSTILL 4 DROPS INTO AFFECTED EAR(S) BY OTIC ROUTE 3 TIMES PER DAY 08/23 completed Not Available Not Available Not Available Bactrim DS 800 mg-160 mg tablet Take 1 tablet every 12 hours by oral route for 5 days. 12/03 completed Not Available Not Available Not Available atomoxetine 40 mg capsule TAKE 1 CAPSULE BY MOUTH EVERY DAY active Not Available Not Available No t Available bupropion HCl XL 300 mg 24 hr tablet, extended release TAKE 1 TABLET BY MOUTH EVERY MORNING 01/24 completed Not Available Not Available Not Available bupropion HCl XL 150 mg 24 hr tablet, extended release TAKE 1 TABLET BY MOUTH EVERY MORNING 01/24 completed Not Available Not Available Not Available escitalopra m 5 mg tablet TAKE 1 TABLET BY MOUTH EVERY DAY active Not Available Not Available No t Available [employer] Chamber USE WITH INHALER EVERY 4 HOURS 01/25 completed Not Available Not Available Not Available Suboxone 8 mg-2 mg sublingual film DISSOLVE 2 FILMS UNDER THE TONGUE EVERY DAY active Not Available Not Available No t Available BinaxNOW COVID-19 Ag Self Test kit TEST DIRECTED TODAY 01/25 completed Not Available Not Available Not Available Wegovy 0.25 mg/0.5 mL subcutaneou s pen injector Inject 0.25 mg every week by subcutane ous route as directed for 30 days. 12/03 completed Not Available Not Available Not Available Paxlovid 300 mg (150 mg x 2)-100 mg tablets in a dose pack TK 2 NIRMATREL VIR TS AND 1 RITONAVIR T TOGETHER PO TWICE DAILY 01/25 completed Not Available Not Available Not Available Zepbound 2.5 mg/0.5 mL subcutaneou s pen injector Inject 2.5 mg every week by subcutane ous route for 30 days. 2024 active Not Available Not Available Not Avai lable Vitals Date Recorded Body height Body mass index (BMI) Body weight Heart rate Oxygen saturation Oxygen saturation in Arterial blood by Pulse oximetry Systolic blood pressure Diastolic blood pressure Provider Name and Address Organization Details Last Updated DateTime 4 170.18 cm 40.9 kg/m2 933825. 61 g 112 /min 98 % 98 % 110 mm[Hg] 63.99 mm[Hg] Leann [facility] 4 14:02:32 Date Recorded Body height Provider Name an d Address Organization Details Last Updated DateTime 12/03/2024 170.18 cm Ramandeep [facility] 12/03/2024 16:04:09 Date Recorded Body height Body mass index (BMI) Body weight Heart rate Oxygen saturation Oxygen saturation in Arterial blood by Pulse oximetry Systolic blood pressure Diastolic blood pressure Provider Name and Address Organization Details Last Updated DateTime 5 170.18 cm 38.5 kg/m2 074873. 65 g 80 /min 97 % 97 % 120 mm[Hg] 78 mm[Hg] Ramandeep Long [facility] 5 10:15:48 Social History Question Answer Notes LastModified by Organizat ion Details LastModified Time Tobacco Smoking Status Current Every Day Smoker MARY ANN [facility] 04/02/2024 09:29:13 What Was The Date Of Your Most Recent Tobacco Screening? 02/25/2025 Information not available 02/25/2025 How Much Tobacco Do You Smoke? 0.5 PPD Information not available 04/02/2024 How Many Years Have You Smoked Tobacco? 12 [id number] Information not available 09/22/2020 Do You Or Have You Ever Used Any Other Forms Of Tobacco Or Nicotine? No [email or web address] Information not available 07/14/2023 Sex: Unknown Functional Status None recorded. Mental Status None recorded. Family History Nothing Reported. Medical History No medical history recorded. Gynecological HistoryNo gynecological history recorded. Obstetrics History GPAL:G 0 P 0 0 0 0 Past Encounters Encounter ID Performer Location Encounter Start Date Encounter Closed Date Diagnosis/Indication Diagnosis SNOMED-CT Code Diagnosis ICD10 Code Diagnosis Note [id number] February TYRONE Meyers [facility] [address] [facility],[place] [address] 01/01/2019 11:27:12 01/01/2019 13:38:31 Acute low back pain 165641549 M54.5 in setting of chronic intermitte nt back pain avoid bending/re aching/twi sting ice/heat/r est/walkin g/stretchi ng as tolerated ibuprofen liberally up to three times per day- take with meals if ibuprofen not helpful cyclobenza danielle if still not well controlled try vicodin sparing use of flexeril and vicodin due to drowsiness try to take vicodin at most once per day if possible advised that normal recovery of back pain is 6-8 weeks, but to f/u at any point if she worsens if pain not resolved after 8 weeks, can consider PT or ortho f/u Sciatica 95452895 M54.31 Obesity 782171477 E66.9 Tobacco de pendence syndrome 12191411 F17.200 [id number] CHAN TEJEDA [facility] [address] [facility] [address] 01/24/2023 11:58:30 01/24/2023 14:11:01 Pneumonia 601979730 J18.8 will start on lower abx, higher potency Acute otitis media 75875 03 H66.92 continue on levofloxac in Acute paloma re exacerbation of asthma 380890960 J45.41 will start on traditiona l taper for the patient since the 60 mg 5 days was ineffectiv e [id number] Ronny Vasques DO [facility] [address] [facility] [address] [address] 07/14/2023 09:27:34 07/14/2023 09:59:15 Acute severe exacerbation of asthma 900638371 J45.41 stable and no issue Adult heal th examination 067010501 Z00.00 Menorrhagia 781258671 N9 2.0 [id number] ABDELRAHMAN RIVERO [facility] [address] [facility] [address] [address] 01/26/2024 16:14:56 01/29/2024 09:09:08 Depressive disorder 22761907 F33.1 will start on lexapro Insomnia 085068047 G47.0 1 will trial olanzapine Nausea and vomiting 1692 1999 R11.2 will start on zofran [id number] ABDELRAHMAN RIVERO [facility] [address] [facility] [address] [address] 01/31/2024 15:57:31 01/31/2024 16:20:14 Depressive disorder 08956979 F33.1 can continue lexaprowil l adjust as needed Insomnia 483812505 G47.0 1 can continue olanzapine will adjust as needed [id number] ABDELRAHMAN RIVERO [facility] [address] [facility] [address] [address] 02/09/2024 10:52:50 02/09/2024 12:22:01 Herpes zoster 0615780 B02.9 will add gabapentin and tizanidine [id number] ABDELRAHMAN RIVERO [facility] [address] [facility] [address] [address] 02/20/2024 15:25:43 02/20/2024 16:32:13 Herpes zoster 2370361 B02.9 add back the gabapentin Postherpet ic neuralgia 0008534 B02.29 will set up with meloxicam 15 mg for inflammati on [id number] ABDELRAHMAN RIVERO [facility] [address] [facility] [address] [address] 04/02/2024 09:22:40 04/02/2024 10:23:22 Eczema 67291846 L30.8 will set up with new dermatolog ist Depression screening 171 836523 Z13.31 stable Acquired h ammer toe of right foot 9818039682 699271 M20.41 needs ortho referral [id number] ABDELRAHMAN RIVERO [facility] [address] [facility] [address] [address] 08/23/2024 14:13:11 08/23/2024 15:40:50 Acute bronchitis 79436480 J20.8 will set up with prednisone and augmentin [id number] ABDELRAHMAN RIVERO [facility] [address] [facility] [address] [address] 08/26/2024 16:09:29 08/26/2024 16:44:02 Acute bronchitis 26677324 J20.8 will set up with prednisone and augmentin Obesity 742664476 E66.81 3 will see if they insurance is willing to coverorder placed, will probably require [id number] ABDELRAHMAN RIVERO [facility] [address] [facility] [address] [address] 11/11/2024 13:55:59 11/11/2024 14:46:10 Sore throat 618968576 J02.8 start on medication s, wait for send out [id number] ABDELRAHMAN RIVERO [facility] [address] [facility] [address] [address] 12/03/2024 15:51:45 12/03/2024 16:41:26 Dyslexia 71731166 F81.0 Depressive disorder 3548 9007 F33.1 stablestil l seeing therapy Poor concentration 42097 005 R41.840 [id number] ABDELRAHMAN RIVERO [facility] [address] [facility] [address] [address] 01/14/2025 13:06:40 01/14/2025 16:09:49 Acute bronchitis 13637577 J20.8 will set up with meds and work note Cough 53774319 R05.1 medrol [id number] ABDELRAHMAN RIVERO [facility] [address] [facility] [address] [address] 02/25/2025 10:05:33 02/25/2025 10:46:46 Poor concentration 20278034 R41.840 no effect with atomoxetin e Obesity 600232315 E66.81 3 BMI 38.5, tobacco dependence , Attention deficit hyperactivity disorder 870684565 F90.0 start on 10 mg adderall, 14 days, in the AM, will set up with starting trial dose Health Concerns Section Related Observation LastModified by Organization Detai ls LastModified Time None Recorded Concern Status LastModified by Organization Details LastModified Time None Recorded Advance Directives Directive None Recorded Payers Encounter Date Sequence Insurance Name Policy Number Policy Henriquez Covered Member ID Henriquez Member ID Guarantor Name 08/26/2024 1 [place] Chan A Luz Marina [id number] Chan Luz Marina 11/11/2024 1 [place] Chan A Luz Marina [id number] Chan Luz Marina 12/03/2024 1 [place] Chan A Luz Marina [id number] Chan Luz Marina 01/14/2025 1 [place] Chan A Luz Marina [id number] Chan Luz Marina 02/25/2025 1 [place] Chan A Luz Marina [id number] Chan Luz Marina Notes Date Note Type Note Provider Name a nd Address Organization Details Recorded Time 4 text/html f/u weight loss and continued sick symptoms The patient is participating in this appointment via telemedicine communication with a phone call/video calling service (Doxy)The patient consents to use of these platforms in place of an in-person appointment due to either sick symptoms the patient is presenting with or current office closure due to COVID exposure in order to keep our office staff and patients safe still having cough, wheezing, sob, feels chest tightnessagreed to CXR to r/o r/in pna obesity: tired calorie restriction, 3168-6086 calories per day without success, active, very active job, she is a industrial equipment mechanic, on her feet fro 3 days out of the weekwill try having insurance approve wegovy, if not there is an options for zepbound to [place] pay at a reduced gonzáles ABDELRAHMAN RIVERO [address] [place], [address], [facility] 08/26/2024 16:35:11 4 text/html sore throat started this morning full body aches, chillsno fever, no nasal congestionsore throat, pain with swallowing swab done, neg rapidsending for culture start on abx and pred work note given ABDELRAHMAN RIVERO [address] [place], [address], [facility] 11/11/2024 14:43:36 5 text/html f/u concentration issues patient is starting at school again on the the of the monthhas noticed as she has been taking classes for a bit between her work schedule the patient has hx of dyslexia which has caused issues previously does she signs of attention deficit, has issues with finishing tasks, motivation/concentrati on, following a conversation, sitting still, organization recommended f/u with [facility] for form so I can fill out for accommodationsand will try a small dose of atomoxetine ABDELRAHMAN RIVERO [address] [place], [address], [facility] 12/03/2024 16:34:41 5 text/html c/o sick symptoms The patient is participating in this appointment via telemedicine communication with a phone call/video calling service (Doxy)The patient consents to use of these platforms in place of an in-person appointment due to either sick symptoms the patient is presenting with or current office closure due to COVID exposure in order to keep our office staff and patients safe The patient presents to the office today with concerns of sick symptoms including cough, congestion, nasal congestion, fatigue, appetite change, sore throat denies fever The symptoms started originally about 2 days agoThe patient reports exposure to work, has a co-worker who is sickThe patient symptoms mainly involves the cough, fatigue Pertinent comorbidities include asthma The patient symptoms are alleviated by restThe patient symptoms are exacerbated by activity The patient has tested for COVID-19 and the results was negativedid not test for flu or RSV ABDELRAHMAN RIVERO [address] [place], [address], [facility] 01/14/2025 16:07:30 5 text/html f/u poor concentration/ADHD The patient presents to the office for evaluation and assessment for concerns of ADHD symptoms DSM-5 Criteria of ADHD to help diagnosis adults: A. A persistent pattern of inattention and/or hyperactivity-impulsiv ity that interferes with functioning or development, as characterized by (1) and/or (2): ?1. Inattention ? Six (or more) of the following symptoms have persisted for at least six months to a degree that is inconsistent with developmental level and that negatively impacts directly on social and academic/occupational activities: -a. Fails to give close attention to details or makes careless mistakes at work, or during other activities (eg, overlooks or misses details, work is inaccurate). (X) -b. Has difficulty sustaining attention in tasks or play activities (eg, has difficulty remaining focused during conversations, or lengthy reading). (X) -c. Does not seem to listen when spoken to directly (eg, mind seems elsewhere, even in the absence of any obvious distraction). -d. Does not follow through on instructions and fails to finish duties in the workplace (eg, starts tasks but quickly loses focus and is easily sidetracked). (X) -e. Has difficulty organizing tasks and activities (eg, difficulty managing sequential tasks; difficulty keeping materials and belongings in order; messy, disorganized work; has poor time management; fails to meet deadlines). (X) -f. Avoids, dislikes, or is reluctant to engage in tasks that require sustained mental effort (preparing reports, completing forms, reviewing lengthy papers). -g. Loses things necessary for tasks or activities (eg, pencils, books, tools, wallets, keys, paperwork, eyeglasses, mobile telephones). (X) -h. Is easily distracted by extraneous stimuli (for older adolescents and adults, may include unrelated thoughts). (X) -i. Is forgetful in daily activities (eg, returning calls, paying bills, keeping appointments). (X) ?2. Hyperactivity and impulsivity ? Six (or more) of the following symptoms have persisted for at least six months to a degree that is inconsistent with developmental level and that negatively impacts directly on social and academic/occupational activities: -a. Often fidgets with or taps hands or feet or squirms in seat. -b. Often leaves seat in situations when remaining seated is expected -c. In adults: restleness -d. Often unable to engage in leisure activities quietly. -e. Is often on the go, acting as if driven by a motor (eg, is unable to be or uncomfortable being still for extended time, as in restaurants, meetings: may be experienced by others as being restless or difficult to keep up with). (X) -f. Often talks excessively. (X) -g. Often blurts out an answer before a question has been completed (eg, completes people' sentences; cannot wait for turn in conversation). -h. Often has difficulty waiting his or her turn (eg, while waiting in line). -i. Often interrupts or intrudes on others (eg, butts into conversations, games, or activities; may start using other people's things without asking or receiving permission; for adolescents and adults, may intrude into or take over what others are doing). ? B. Several inattentive or hyperactive-impulsive symptoms were present prior to age 12 years. ? C. Several inattentive or hyperactive-impulsive symptoms are present in two or more settings (eg, at home, school, or work; with friends or relatives; in other activities). ? D. There is clear evidence that the symptoms interfere with, or reduce the quality of, social, academic, or occupational functioning. ? E. The symptoms do not occur exclusively during the course of schizophrenia or another psychotic disorder and are not better explained by another mental disorder (eg, mood disorder, anxiety disorder, dissociative disorder, personality disorder, substance intoxication or withdrawal) BMI: 38, will try for zepbound for weight loss and for tobacco use d/opatient agrees for this kasi put in for PA will have patient get updated lab work as well to check her sugar and cholesterol levels ABDELRAHMAN RIVERO [address] [facility], [place], [address], [facility] 02/25/2025 10:31:29 OBGyn Episode No OBEpisode recorded.
--- OUTSIDE RECORDS SUMMARY | 2025-02-25 12:42 | XMS_ITS | Continuity of Care Document ---
Author Organization [facility], [facility] Address [address] [facility] [place] [address] Assessment No assessment recorded. Plan of Treatment Reminders Order Date Submit Date Provider Last Modified By Organization Details Last Modified Time Details Appointments FOLLOW UP 15 2024 10:15A M ABDELRAHMAN RIVERO Not available Not available Not available Lab CMP, serum or plasma 2024 025 [facility], [address] [place] [address], [id number], 02/25/2025 10:36:15 CBC w/ auto diff 2024 025 [facility], [address] [place] [address], [place], [address], 02/25/2025 10:36:15 lipid panel, serum 2024 025 [facility], [address] [place] [address], [id number], 02/25/2025 10:36:15 Referral None recorded. Procedures None recorded. Surgeries None recorded. Imaging None recorded. Medication Orders Zepbound 2.5 mg/0.5 mL subcutane ous pen injector 2024 025 [id number], [address] [place], [place], [id number], 02/25/2025 10:27:47 dextroamp hetamine- amphetami ne 10 mg tablet 2024 025 [facility] #[id number], [address], [place], [id number], 02/25/2025 10:27:51 Patient TargetsNo targets recorded. Patient InstructionsNo instructions recorded. Reason for Referral None Reported. Problems Name Problem SNOMED Code Status Onset Date Resolution Date Notes Provider Name and Address Organization Details Recorded Time Cellulit is 258063459 Active 2018 Sasha matson [facility] 9 08:28:53 Bee sting 829700730 Active 2018 ? allergy Sasha matson [facility] 9 08:29:18 Chronic low back pain 332177943 Active 2018 L5,S1 disc protrusio n Sashayuli matson [facility] 9 08:30:52 Sciatica 93350717 [facility] 08:29:[facility] Tobacco dependen ce syndrome 28971901 Active 2018 Sasha matson [facility] 9 08:31:01 Infestat ion by Sarcopte s scabiei meliton hominis 577056399 Active 2018 resolved Sashayuli matson [facility] 9 08:31:30 Obesity 705049648 Active 2018 TYRONE Meyers [address] [place], [address], [facility] 9 11:59:04 Pneumoni a 813898348 Active 2022 ABDELRAHMAN RIVERO [address] [place], [address], [facility] 3 12:11:04 Acute otitis media 6996160 Active 2022 ABDELRAHMAN RIVERO [address] [place], [address], [facility] 3 12:11:38 Acute severe exacerba tion of asthma 212111506 Active 2022 ABDELRAHMAN RIVERO [address] [place], [address], [facility] 3 12:11:57 Eczema 40934840 Active 2022 ABDELRAHMAN RIVERO [address] [place], [address], [facility] 3 12:19:22 Menorrha nixon 762015173 Active 2022 Ronny Vasques, DO [address] [place] [address], [address], [facility] 3 09:51:42 COVID-19 961962314 Active 2023 Ronny Vasques, DO [address] [place] [address], [address], [facility] 4 09:30:39 Streptoc occal sore throat 95625972 Active 2023 ABDELRA[address]MAN RIVERO [address] [place] [address], [address], [facility] 4 13:26:39 Depressi ve disorder 99043654 Active 2023 ABDELRA[address]MAN RIVERO [address] [place] [address], [address], [facility] 4 16:28:45 Insomnia 030890177 Active 2023 ABDELRA[address]MAN RIVERO [address] [place] [address], [address], [facility] 4 16:38:46 Nausea and vomiting 60600460 Active 2023 ABDELRA[address]MAN RIVERO [address] [place] [address], [address], [facility] 4 16:42:37 Herpes zoster 1222654 Active 2023 ABDELRA[address]MAN RIVERO [address] [place] [address], [address], [facility] 4 09:18:03 Postherp etic neuralgi a 6220356 Active 2023 ABDELRAHMAN RIVERO [address] [place], [address], [facility] 4 15:46:11 Acquired hammer toe of right foot 26316920565 [address]2542 Active 2023 ABDELRAHMAN RIVERO [address] [place], [address], [facility] 4 09:33:26 Acute bronchit is 99383076 Active 2023 ABDELRAHMAN RIVERO [address] [place], [address], [facility] 4 15:24:34 Acute urinary tract infectio n 982357122 Active 2023 ABDELRAHMAN RIVERO [address] [place], [address], [facility] 4 15:43:58 Influenz a caused by Influenz a A virus 844565688 Active 2023 ABDELRAHMAN RIVERO [address] [place], [address], [facility] 4 12:14:13 Sore throat 836863843 Active 2023 ABDELRAHMAN RIVERO [address] [place], [address], [facility] 4 14:37:06 Dyslexia 53302472 Active 2024 ABDELRAHMAN RIVERO [address] [place], [address], [facility] 5 16:19:16 Poor concentr ation 32556312 Active 2024 ABDELRAHMAN RIVERO [address] [place], [address], [facility] 5 16:25:55 Cough 88527759 Active 2024 ABDELRAHMAN RIVERO [address] [place], [address], [facility] 5 16:01:43 Attentio n deficit hyperact ivity disorder 705265100 Active 2024 ABDELRAHMAN RIVERO [address] [place], [address], [facility] 5 10:21:14 Problem Notes None [...] and Address Organization Details Last Updated DateTime 170.18 cm 38.5 kg/m2 930522. 65 g 80 /min 97 % 97 % 120 mm[Hg] 78 mm[Hg] Ramandeep Morgan [facility] 10:15:48 Social History Question Answer Notes LastModified by Organizat ion Details LastModified Time Tobacco Smoking Status Current Every Day Smoker [facility] 04/02/2024 09:29:13 What Was The Date Of Your Most Recent Tobacco Screening? 02/25/2025 Information not available 02/25/2025 How Much Tobacco Do You Smoke? 0.5 PPD Information not available 04/02/2024 How Many Years Have You Smoked Tobacco? 12 [id number] Information not available 09/22/2020 Do You Or Have You Ever Used Any Other Forms Of Tobacco Or Nicotine? No [email or web address] Information not available 07/14/2023 Sex: Unknown Functional Status None recorded. Mental Status None recorded. Family History Nothing Reported. Medical History No medical history recorded. Gynecological HistoryNo gynecological history recorded. Obstetrics History GPAL:G 0 P 0 0 0 0 Past Encounters Encounter ID Performer Location Encounter Start Date Encounter Closed Date Diagnosis/Indication Diagnosis SNOMED-CT Code Diagnosis ICD10 Code Diagnosis Note [id number] ABDELRAHMAN RIVERO [facility] [address] [address] 02/25/2025 10:05:33 02/25/2025 10:46:46 Poor concentration 29892165 R41.840 no effect with atomoxetin e Obesity 109776283 E66.81 3 BMI 38.5, tobacco dependence , Attention deficit hyperactivity disorder 678512479 F90.0 start on 10 mg adderall, 14 days, in the AM, will set up with starting trial dose Health Concerns Section Related Observation LastModified by Organization Detai ls LastModified Time None Recorded Concern Status LastModified by Organization Details LastModified Time None Recorded Payers Encounter Date Sequence Insurance Name Policy Number Policy Henriquez Covered Member ID Henriquez Member ID Guarantor Name 02/25/2025 1 [place] [facility] Jaki Raza [id number] Jaki Raza Notes Date Note Type Note Provider Name a nd Address Organization Details Recorded Time 02/25/2025 text/html f/u poor concentration/ADHD The patient presents to the office for evaluation and assessment for concerns of ADHD symptoms DSM-5 Criteria of ADHD to help diagnosis adults: A. A persistent pattern of inattention and/or hyperactivity-impu lsivity that interferes with functioning or development, as characterized by (1) and/or (2): ?1. Inattention ? Six (or more) of the following symptoms have persisted for at least six months to a degree that is inconsistent with developmental level and that negatively impacts directly on social and academic/occupatio nal activities: -a. Fails to give close attention [...] that negatively impacts directly on social and academic/occupatio nal activities: -a. Often fidgets with or taps [...] are doing). ? B. Several inattentive or hyperactive-impuls dheeraj symptoms were present prior to age 12 years. ? C. Several inattentive or hyperactive-impuls dheeraj symptoms are present in two or more [...] for weight loss and for tobacco use d/ever agrees for this planzora put in for PA will have patient get updated lab work as well to check her sugar and cholesterol levels ABDELRAHMAN RIVERO [address] [facility], [place], [address], [facility] 02/25/2025 10:31:29 OBGyn Episode No OBEpisode recorded.
--- OUTSIDE RECORDS SUMMARY | 2025-02-25 12:42 | XMS_ITS | Clinical Summary ---
Author Organization [employer] Address [address] [place] [address] [address] [place] [address] Care Team Providers Care Support Assistant Name Role Phone Unavailable Primary Care Provider Unavailabl e Allergies No known active allergies Medications amoxicillin-clav ulanate (Augmentin) 875-125 MG tablet Take 1 tablet by mouth 2 times daily. 30 tablet 05/15/2024 Active Active Problems Problem Noted Date Diagnosed Date Dental abscess 12/06/2023 Encounters Date Type Department Care Team Description 02/12/2025 Telephone [facility] [address] [place] [address] Radha Kruse BDS from Last 3 Months Social History Tobacco Use Types Packs/Day Years Used Date Smoking Tobacco: Every Day Cigarettes Smokeless Tobacco: Never Tobacco Cessation:Ready to Q uit: Not Asked; Counseling Given: Not Answered Comments Unknown Sex and Gender Information Value Date Recorded Sex Assigned at Female 11/21/2023 10:04 AM EST Legal Sex Female 10:02 AM EST Gender Identity Female 11/21/2023 10:04 AM EST Sexual Orientation Straight 11/21/2023 10 :04 AM EST Last Filed Vital Signs Vital Sign Reading Time Taken Comments Blood Pressure 112/77 05/15/2024 1:50 PM EDT Pulse 80 05/15/2024 1:50 PM EDT Temperature - - Respiratory Rate - - Oxygen Saturation - - Inhaled Oxygen Concentration - - Weight - - Height - - Body Mass Index - - Plan of Treatment Health Maintenance Due Date Last Done Comments Dental Prophylaxis 1986 Dental X-Ray: Bitewings 1986 Depression Screening 1986 HIV Screening 1986 Lipid Panel 1986 SDOH Screening 1986 Alcohol/Substance Use Screening 1998 Family Planning (PISQ) 2001 Hepatitis C Screening 2004 DTaP/Tdap/Td Vaccines (1 - Tdap) 2005 Hepatitis B Vaccines (1 of 3 - 19+ 3-dose series) 2005 Pneumococcal Vaccine: Pediat rics (0 to 5 Years) and At-Risk Patients (6 to 49) Years) (1 of 2 - PCV) 2005 Pap Smear 2007 Cervical Cancer Screening 2016 HPV/Cotest 2016 Dental Oral Exam 06/06/2024 12/06/2023 COVID-19 Vaccine (1 - 2023-2 5 season) 2024 Influenza Vaccine (#1) 2024 Tobacco Screening 05/15/2025 05/15/2024 Dental X-Ray: Full Mouth 12/07/2026 12/06/2023 Zoster Vaccines (1 of 2) 2036 RSV Patients and Pa tients Aged 60 years or older (1 - 1-dose 75+ series) 2061 HIB Vaccines Aged Out No longer eligi ble based on patient's age to complete this topic HPV Vaccines Aged Out No longer eligi ble based on patient's age to complete this topic Hepatitis A Vaccines Aged Out No long er eligible based on patient's age to complete this topic IPV Vaccines Aged Out No longer eligi ble based on patient's age to complete this topic Meningococcal Vaccine Aged Out No [facility] eligible based on patient's age to complete this topic RSV under 20 months Aged Out No longe r eligible based on patient's age to complete this topic Rotavirus Vaccines Aged Out No longer eligible based on patient's age to complete this topic Procedures Procedure Name Priority Date/Time Associated Diagnosis Comments COMPREHENSIVE ORAL EVALUATION - NEW OR ESTABLISHED PATIENT Routine 12/06/2023 3:00 PM EST PANORAMIC RADIOGRAPHIC IMAGE Routine 12/06/2023 2:00 PM EST from Last 3 Months or Most Recently Relevant to Health Maintenance [facility] AD[facility]
[2025-02-25 13:12] LABS: MANUAL DIFF FLAG NO
[2025-02-25 13:24] LABS: Basophils Percent Auto 0.5 % (0-2); Eosinophils Percent Auto 0.5 % (0-4); Hematocrit 37.6 % (37.0-47.0); Hemoglobin 13.1 g/dl (12.0-16.0); Imm Gran Abs Auto 0.03 X10*3/uL (0.00-0.03); Imm Gran Pct Auto 0.4 % (0.0-0.4); Lymphocytes Percent Auto 24.1 % (20-40); Mean Corpuscular HGB Conc 34.8 g/dl (31.0-35.0); Mean Corpuscular Hemoglobin 28.6 pg (27.0-33.0); Mean Corpuscular Volume 82.1 fL (80.0-98.0); Mean Platelet Volume 9.6 fL (9.4-12.3); Monocytes Absolute Auto 0.5 X10*3/uL (0.1-1.2); Neutrophils Absolute Auto 5.6 x10*3/uL (2.0-8.3); Neutrophils Percent Auto 68.5 % (45-73); Platelet Count 288 X10*3/uL (160-400); Red Blood Count 4.58 X10*6/uL (4.20-5.50); White Blood Count 8.2 X10*3/uL (4.8-10.8)
[2025-02-25 14:07] LABS: Alanine Aminotransferase 18 U/L (0-31); Albumin Level 4.3 g/dL (3.5-5.0); Alkaline Phosphatase 72 U/L (39-117); Anion Gap 12 (12-20); Aspartate Amino Transferase 20 U/L (5-31); Bilirubin Total 0.5 mg/dL (0.0-1.0); Blood Urea Nitrogen 10 mg/dL (9-16); Calcium 9.6 mg/dL (8.4-10.2); Carbon Dioxide 27 mmol/L (22-29); Chloride 105 mmol/L (96-108); Cholesterol 204 mg/dL (<200); Estimated Glomerular Filt Rate > 60; Glucose Random 79 mg/dL (60-115); HDL Cholesterol 52 mg/dL (>40); LDL Cholesterol Calculated 136 mg/dL (<100); Potassium 3.6 mmol/L (3.3-5.1); Sodium 140 mmol/L (135-145); Total Protein 7.5 g/dL (6.5-8.0); Triglycerides 82 mg/dL (<150)
== END 2025-02-25 10:37 | disposition home or self-care (01) ==
LOC: HO.MANLDS 10:36
PROVIDERS: Visit Provider Physician Assistant
DX: E66.813 Obesity, class 3 (principal)
CPT/HCPCS: 36415; 80053; 80061; 85025